=== PATIENT | male | born 1975 | race Caucasian/White ===

== ENCOUNTER 2018-10-30 08:52 | Emergency (ER) | payer SELFPAY ==
[~2018-10-30] VITALS: Ht 177.8 cm; Wt 72.6 kg
[~2018-10-30 08:52] MED LIST: GABA-534 PO; SERT100T12 PO
[2018-10-30 09:06] VITALS: BP 123/69
[2018-10-30 10:00] LABS: APPEARANCE,URINE Clear (CLEAR); BILIRUBIN,URINE Negative (NEGATIVE); BLOOD, URINE Negative Ery/uL (NEGATIVE); COLOR,URINE Yellow (YELLOW); KETONES,URINE Negative (NEGATIVE); LEUKOCYTE ESTERASE ,URINE Negative (NEGATIVE); NITRITE, URINE Negative (NEGATIVE); PH,URINE 5.5 (5.0-8.0); PROTEIN,URINE Negative (NEGATIVE); UGLUCOSE Negative (NEGATIVE); UROBILINOGEN,URINE 0.2 EU/dL (0.2)
[2018-10-30] MEDS ORDERED: AZITHROMYCIN 250 MG TABLET ONE (10:22)
[2018-10-30] MEDS ORDERED: CEFTRIAXONE 500 MG VIAL ONE (10:22)
[2018-10-30] MEDS ORDERED: LIDOCAINE /MPF 1% VIAL 5 ML VIAL ONE (10:23)
[2018-10-30] MEDS: AZITHROMYCIN 250 MG TABLET PO ONE (10:37)
[2018-10-30] MEDS: CEFTRIAXONE 500 MG VIAL IM ONE (10:38)
--- NOTE | 2018-10-30 10:38 | NUR ---
PT REFUSED MEDICATION. LEFT ER W/OUT ACI.
== END 2018-10-30 10:44 | disposition home or self-care (01) ==
LOC: ER 08:55
DX: N45.1 Epididymitis (principal); F17.200 Nicotine dependence, unspecified, uncomplicated; Z90.89 Acquired absence of other organs; Z98.890 Other specified postprocedural states; Z79.899 Other long term (current) drug therapy
CPT/HCPCS: 76870-TC; 81000-TC; 87086-TC; 87491; 87591; J0696; J3490